=== PATIENT | female | born 1970 ===

== ENCOUNTER 2022-02-02 23:48 | Inpatient (IN) | payer OTHER ==
[2022-02-03] MEDS ORDERED: Bisacodyl 5 MG TAB PO PRN (03:36)
[2022-02-03] MEDS ORDERED: Bisacodyl 10 MG SUPP PR PRN (03:36)
[2022-02-03] MEDS ORDERED: Senokot S 8.6-50 MG TAB PO PRN (03:36)
[2022-02-03 03:47] VITALS: BMI 36.2
[2022-02-03] MEDS ORDERED: Morphine 2 MG/ML VIAL SLOW IVP PRN (04:55)
[2022-02-03] MEDS: traMADol HCl 50 MG TAB PO PRN ×3 (05:09→21:44)
[2022-02-03] MEDS: Vancomycin 1.5 GRAM/300 ML BAG 1.5 GM in Premix Bag 1 BAG IVPB SCH ×2 (05:10→17:42)
[2022-02-03] MEDS: Sodium Chloride 0.9% 1,000 ML IV SCH (05:10)
[2022-02-03 06:44] LABS: #Eosinphils 0.1 thou/uL (0.0-0.7); #Lymphocytes 1.3 thou/uL (1.20-3.40); #Monocytes 0.8 thou/uL (0.11-0.59); %Basophils 0.2 % (0.0-1.0); %Eosinophils 1.1 % (0.0-10.0); %Lymphocytes 11.3 % (21.0-51.0); %Monocytes 7.1 % (0.0-10.0); %Neutrophils 80.3 % (42.0-75.0); Hemoglobin 9.3 g/dL (12.0-16.0); Mean Corpuscular Volume 93.9 fL (78.0-98.0); Mean Platelet Volume 6.8 fL (7.4-10.4); Platelet Count 348 thou/uL (130-400); RBC Distribution Width 12.9 % (11.5-14.5); Red Blood Cell (RBC) Count 3.09 mill/uL (4.20-5.40); White Blood Cell (WBC) Count 11.2 thou/uL (4.8-10.8)
[2022-02-03 06:58] LABS: Reticulocyte Count 3.4 % (0.5-1.5)
[2022-02-03 07:21] LABS: Albumin 2.9 g/dL (3.5-5.0)
[2022-02-03 07:22] LABS: Chloride 101 mmol/L (98-107); Sodium 135 mmol/L (136-145)
[2022-02-03 07:23] LABS: Calcium 8.2 mg/dL (7.8-10.44)
[2022-02-03 07:24] LABS: Globulin 3.1 g/dL (2.4-3.5); Glucose 103 mg/dL (70-105)
[2022-02-03 07:25] LABS: Anion Gap 12 mmol/L (10-20); Carbon Dioxide 25 mmol/L (22-29)
[2022-02-03 07:26] LABS: Bilirubin, Total 2.1 mg/dL (0.2-1.2); Hemoglobin A1c 5.5 % (4.0-6.0)
[2022-02-03 07:27] LABS: Alkaline Phosphatase 111 U/L (40-110); CRP (Inflammatory) 19.61 mg/dL (= or < 0.5); Calc. Creatinine Clearance 135 mL/min (70-130); Estimated GFR 95
[2022-02-03 07:28] LABS: BUN (Urea Nitrogen) 8 mg/dL (9.8-20.1)
[2022-02-03 07:29] LABS: AST (SGOT) 187 U/L (5-34)
[2022-02-03 07:30] LABS: ALT (SGPT) 158 U/L (8-55); Magnesium 2.1 mg/dL (1.6-2.6)
[2022-02-03 07:49] LABS: Hep C IgG Ab Non-Reactive (NonReactive); Hep C Index 0.08 S/CO (0-0.79)
[2022-02-03 08:03] LABS: HBCM Index 0.05 S/CO (0-0.79); Hep A IgM AB Non-Reactive (NonReactive); Hep A IgM S/CO 0.13 S/CO (0-0.79); Hep B Surf Ag Non-Reactive S/CO (NonReactive); Hepatitis B Core IgM Abs Non-Reactive (NonReactive)
[2022-02-03 08:08] LABS: Iron 16 ug/dL (50-170); Iron Binding Capacity, Total 230 mcg/dL (265-497)
[2022-02-03 08:27] LABS: Ferritin 284.63 ng/mL (10-291)
[2022-02-03 08:49] LABS: Iron 16 ug/dL (50-170)
[2022-02-03 08:50] LABS: Iron Binding Capacity, Total 230 mcg/dL (265-497)
[2022-02-03] MEDS ORDERED: Vancomycin 1 GM in Premix Bag 1 BAG IVPB SCH (09:00)
[2022-02-03] MEDS: Cefepime 2 GM in Sodium Chloride 0.9% 100 ML IVPB SCH ×2 (10:25→21:12)
[2022-02-03] MEDS: Ondansetron PF 4 MG/2 ML Vial IVP PRN (10:47)
[2022-02-03] MEDS: metroNIDAZOLE 500 MG in Premix Bag 1 BAG IVPB SCH ×2 (14:11→21:12)
[2022-02-03] MEDS: Acetaminophen 325 MG TAB PO PRN ×2 (14:11→21:44)
[2022-02-03 16:24] LABS: SARS-CoV-2 NAA Rapid Test Not Detected (NotDetected)
[2022-02-03] MEDS: Enoxaparin Sodium 40 MG/0.4 ML SYRINGE SC SCH (21:12)
[2022-02-04] MEDS: Sodium Chloride 0.9% 1,000 ML IV SCH ×2 (01:42→20:06)
[2022-02-04] MEDS: Acetaminophen 325 MG TAB PO PRN ×2 (01:42→20:05)
[2022-02-04] MEDS: metroNIDAZOLE 500 MG in Premix Bag 1 BAG IVPB SCH ×3 (05:05→22:15)
[2022-02-04 05:25] LABS: #Eosinphils 0.1 thou/uL (0.0-0.7); #Lymphocytes 1.4 thou/uL (1.20-3.40); #Monocytes 0.6 thou/uL (0.11-0.59); #Neutrophils 6.1 thou/uL (1.40-6.50); %Basophils 0.3 % (0.0-1.0); %Eosinophils 1.7 % (0.0-10.0); %Lymphocytes 17.3 % (21.0-51.0); %Monocytes 7.2 % (0.0-10.0); %Neutrophils 73.5 % (42.0-75.0); Hemoglobin 8.6 g/dL (12.0-16.0); Mean Corpuscular HGB CONC 33.6 g/dL (32.0-36.0); Mean Corpuscular Hemoglobin 31.4 pg (27.0-31.0); Mean Corpuscular Volume 93.4 fL (78.0-98.0); Mean Platelet Volume 6.7 fL (7.4-10.4); Platelet Count 306 thou/uL (130-400); RBC Distribution Width 12.6 % (11.5-14.5); Red Blood Cell (RBC) Count 2.75 mill/uL (4.20-5.40); White Blood Cell (WBC) Count 8.3 thou/uL (4.8-10.8)
[2022-02-04 05:40] LABS: ALT (SGPT) 130 U/L (8-55); AST (SGOT) 94 U/L (5-34); Albumin 2.5 g/dL (3.5-5.0); Alkaline Phosphatase 104 U/L (40-110); Anion Gap 12 mmol/L (10-20); BUN (Urea Nitrogen) 8 mg/dL (9.8-20.1); Bilirubin, Total 0.8 mg/dL (0.2-1.2); Calc. Creatinine Clearance 130 mL/min (70-130); Calcium 7.9 mg/dL (7.8-10.44); Carbon Dioxide 23 mmol/L (22-29); Chloride 106 mmol/L (98-107); Cholesterol 134 mg/dl (< 200 Desired); Estimated GFR 91; Globulin 2.8 g/dL (2.4-3.5); Glucose 95 mg/dL (70-105); HDL Cholesterol 27 mg/dL (>60 Neg Risk); LDL Cholesterol, Calculated 95 mg/dL; Magnesium 2.2 mg/dL (1.6-2.6); Potassium 3.2 mmol/L (3.5-5.1); Protein, Total 5.3 g/dL (6.0-8.3); Sodium 138 mmol/L (136-145); Triglycerides 58 mg/dL (Less than 150)
[2022-02-04] MEDS: traMADol HCl 50 MG TAB PO PRN (06:09)
[2022-02-04] MEDS: Vancomycin 1.5 GRAM/300 ML BAG 1.5 GM in Premix Bag 1 BAG IVPB SCH ×2 (06:09→16:36)
[2022-02-04] MEDS ORDERED: Polyethylene Glycol 3350 17 GM Packet PO PRN (07:36)
[2022-02-04] MEDS: Ferrous Sulfate 325 MG TAB PO SCH ×2 (10:16→16:35)
[2022-02-04] MEDS: Cefepime 2 GM in Sodium Chloride 0.9% 100 ML IVPB SCH ×2 (10:17→20:05)
[2022-02-04] MEDS ORDERED: Potassium Chloride 20 MEQ TAB PO SCH ×3 (12:15→18:00)
[2022-02-04] MEDS ORDERED: Docusate 100 MG CAP PO PRN (15:49)
[2022-02-04] MEDS: Enoxaparin Sodium 40 MG/0.4 ML SYRINGE SC SCH (20:05)
[2022-02-04] MEDS: Ondansetron PF 4 MG/2 ML Vial IVP PRN (21:20)
[2022-02-05] MEDS: Ondansetron PF 4 MG/2 ML Vial IVP PRN (01:53)
[2022-02-05 05:38] LABS: #Eosinphils 0.1 thou/uL (0.0-0.7); #Lymphocytes 1.3 thou/uL (1.20-3.40); #Monocytes 0.6 thou/uL (0.11-0.59); #Neutrophils 7.3 thou/uL (1.40-6.50); %Basophils 0.3 % (0.0-1.0); %Eosinophils 0.6 % (0.0-10.0); %Lymphocytes 13.9 % (21.0-51.0); %Monocytes 6.5 % (0.0-10.0); %Neutrophils 78.7 % (42.0-75.0); Hemoglobin 8.2 g/dL (12.0-16.0); Mean Corpuscular HGB CONC 33.1 g/dL (32.0-36.0); Mean Corpuscular Hemoglobin 31.1 pg (27.0-31.0); Mean Platelet Volume 6.6 fL (7.4-10.4); Platelet Count 343 thou/uL (130-400); RBC Distribution Width 12.7 % (11.5-14.5); Red Blood Cell (RBC) Count 2.63 mill/uL (4.20-5.40); White Blood Cell (WBC) Count 9.3 thou/uL (4.8-10.8)
[2022-02-05] MEDS: metroNIDAZOLE 500 MG in Premix Bag 1 BAG IVPB SCH (05:43)
[2022-02-05] MEDS: Vancomycin 1.5 GRAM/300 ML BAG 1.5 GM in Premix Bag 1 BAG IVPB SCH (05:43)
[2022-02-05 05:53] LABS: ALT (SGPT) 86 U/L (8-55); AST (SGOT) 43 U/L (5-34); Albumin 2.4 g/dL (3.5-5.0); Alkaline Phosphatase 93 U/L (40-110); Anion Gap 8 mmol/L (10-20); BUN (Urea Nitrogen) 6 mg/dL (9.8-20.1); Bilirubin, Total 0.7 mg/dL (0.2-1.2); Calc. Creatinine Clearance 147 mL/min (70-130); Carbon Dioxide 26 mmol/L (22-29); Chloride 107 mmol/L (98-107); Estimated GFR 104; Glucose 100 mg/dL (70-105); Magnesium 2.2 mg/dL (1.6-2.6); Potassium 3.4 mmol/L (3.5-5.1); Protein, Total 5.4 g/dL (6.0-8.3); Sodium 138 mmol/L (136-145)
[2022-02-05] MEDS: Cefepime 2 GM in Sodium Chloride 0.9% 100 ML IVPB SCH (08:16)
[2022-02-05] MEDS: Ferrous Sulfate 325 MG TAB PO SCH (08:16)
[2022-02-05] MEDS: traMADol HCl 50 MG TAB PO PRN (08:17)
[2022-02-05] MEDS ORDERED: Gabapentin 100 MG CAP PO SCH (09:00)
[2022-02-05 09:24] VITALS: BP 124/69; TEMP 98.2
== END 2022-02-05 09:10 | disposition home or self-care (01) | DRG 862 ==
LOC: SURG A 23:48
PROVIDERS: ADMIT Internal Medicine; ATTEND Internal Medicine
DX: T81.41XA Infection following a procedure, superficial incisional surgical site, initial encounter (principal); A41.02 Sepsis due to Methicillin resistant Staphylococcus aureus; L03.311 Cellulitis of abdominal wall; Z20.822 Contact with and (suspected) exposure to COVID-19; E66.9 Obesity, unspecified; Y83.8 Other surgical procedures as the cause of abnormal reaction of the patient, or of later complication, without mention of misadventure at the time of the procedure; I10 Essential (primary) hypertension; D64.9 Anemia, unspecified; Z53.29 Procedure and treatment not carried out because of patient's decision for other reasons; Z98.51 Tubal ligation status; Z90.49 Acquired absence of other specified parts of digestive tract; Z98.890 Other specified postprocedural states; Z68.36 Body mass index [BMI] 36.0-36.9, adult
CPT/HCPCS: 36415; 76705; 80053; 80061; 80074; 80202; 82728; 83036; 83540; 83550; 83735; 84443; 85025; 85046; 85652; 86140; 86850; 86900; 86901; 87040; 87070; 87077; 87186; 87205; 93005; 93010; 93306; 97139; J0692; J1650; J2270; J2405; J3370; J3490; J7050